=== PATIENT | female | born 1990 | race Caucasian/White ===

== ENCOUNTER 2022-05-21 10:53 | Outpatient (CLI) | payer OTHER, SELFPAY ==
[2022-05-21 13:54] LABS: TSH With Reflex to FT4* 0.804 uIU/mL (0.270-4.200)
== END 2022-05-21 10:54 | disposition home or self-care (01) ==
LOC: NFLDREF 10:54
PROVIDERS: PCP Family Medicine; Visit Provider Family Medicine
DX: R79.89 Other specified abnormal findings of blood chemistry (principal)
CPT/HCPCS: 84443

== ENCOUNTER 2023-05-13 13:31 | Outpatient (CLI) | payer OTHER, SELFPAY | END 2023-05-13 13:32 | disposition home or self-care (01) | LOC: NFLDREF 05-18 11:44 | PROVIDERS: PCP Family Medicine; Referring Provider Family Medicine; Visit Provider Family Medicine | DX: E04.9 Nontoxic goiter, unspecified (principal) | CPT/HCPCS: 84443 ==

== ENCOUNTER 2023-05-18 16:42 | Outpatient (CLI) | payer OTHER, SELFPAY | END 2023-05-18 16:43 | disposition home or self-care (01) | LOC: NFLDREF 05-19 10:59 | PROVIDERS: PCP Family Medicine; Referring Provider Family Medicine; Visit Provider Family Medicine | DX: R94.6 Abnormal results of thyroid function studies (principal); Z13.228 Encounter for screening for other metabolic disorders | CPT/HCPCS: 80053 ==